=== PATIENT | female | born 1995 | race African-American/Black ===

== ENCOUNTER 2019-11-04 10:14 | Observation (INO) | payer SELFPAY ==
[~2019-11-04] VITALS: Ht 170.2 cm; Wt 60.2 kg
[2019-11-04 10:55] LABS: BASO # 0.1 (0.0-0.2); BASO % 0.4 % (0.0-2.0); GRAN # 18.6 (1.4-6.5); GRAN % 89.1 % (42.2-75.2); HEMATOCRIT 39.2 % (37.0-47.0); HEMOGLOBIN 12.7 g/dl (12.5-16.0); LYMPH # 1.3 (1.2-3.4); LYMPH % 6.2 % (20.0-51.0); MEAN CELL VOLUME 85 fl (80.0-100.0); MEAN CORPUSCULAR HEMOGLOBIN 28 pg (27.0-31.0); MEAN CORPUSCULAR HGB CONC 32 g/dl (33.0-37.0); MEAN PLATELET VOLUME 9.8 fl (7.4-10.4); MONO # 0.8 (0.1-0.6); MONO % 3.9 % (1.7-9.3); PLATELET COUNT 338 K/mm3 (130-400); RED BLOOD COUNT 4.61 M/mm3 (4.10-5.30); REDCELL DISTRIBUTION WIDTH-CV 13.9 % (11.5-14.5)
[2019-11-04 11:11] LABS: ALANINE AMINOTRANSFERASE 11 U/L (4-34); ALBUMIN 4.6 gm/dL (3.5-5.0); ALKALINE PHOSPHATASE 82 U/L (50-136); ANION GAP 11 mmol/L (7-16); AST,SGOT 18 U/L (15-37); BILIRUBIN,TOTAL 0.9 mg/dL (0.0-1.0); BLOOD UREA NITROGEN 7 mg/dL (7-17); CALCIUM 9.4 mg/dL (8.4-10.2); CARBON DIOXIDE 23 mmol/L (22-30); CHLORIDE 108 mmol/L (98-107); CREATININE, serum 0.63 (0.52-1.25); GLUCOSE 207 mg/dL (74-106); LIPASE 32 U/L (23-300); POTASSIUM 3.8 mmol/L (3.4-5.0); SODIUM 142 mmol/L (137-145); TOTAL PROTEIN 7.9 gm/dL (6.4-8.2)
[2019-11-04 11:12] LABS: C-REACTIVE PROTEIN < 0.5 mg/dL (0.0-0.9)
[2019-11-04 11:41] LABS: COLLECTION METHOD CLEAN CATCH
[2019-11-04 12:00] LABS: MUCOUS Present /lpf; PH 6 (5-8); URINE APPEARANCE Cloudy; URINE BACTERIA Moderate /hpf; URINE BILIRUBIN Negative (NEGATIVE); URINE BLOOD 3+ (NEGATIVE); URINE COLOR Yellow; URINE GLUCOSE 3+ (NEGATIVE); URINE KETONE 2+ (NEGATIVE); URINE LEUKOCYTE ESTERASE 1+ (NEGATIVE); URINE NITRATE Negative (NEGATIVE); URINE PROTEIN(semi-quant) 1+ (NEGATIVE); URINE RBC >50 /hpf; URINE UROBILINOGEN Negative (NEGATIVE)
[2019-11-04 14:18] LABS: HEMOGLOBIN 12.9 g/dl (12.5-16.0); MEAN CELL VOLUME 84 fl (80.0-100.0); MEAN CORPUSCULAR HEMOGLOBIN 28 pg (27.0-31.0); MEAN CORPUSCULAR HGB CONC 33 g/dl (33.0-37.0); MEAN PLATELET VOLUME 9.9 fl (7.4-10.4); PLATELET COUNT 322 K/mm3 (130-400); RED BLOOD COUNT 4.64 M/mm3 (4.10-5.30); REDCELL DISTRIBUTION WIDTH-CV 13.9 % (11.5-14.5)
[2019-11-04 14:37] LABS: ANISOCYTOSIS 1+; BAND 5 % (0-10); LYMPHOCYTE 4 % (20.0-51.0); NEUTROPHILS 89 % (42.0-75.2); PLATELET ESTIMATE NORMAL (NORMAL)
[2019-11-04 18:59] VITALS: BP 144/87; PULSE 60; TEMP 99.1
[2019-11-04 19:28] VITALS: BP 144/87; PULSE 60; TEMP 99.1
[2019-11-04 23:57] VITALS: BP 119/72; PULSE 57; TEMP 99.2
[2019-11-05 03:58] VITALS: BP 148/70; PULSE 60; TEMP 98.9
[2019-11-05 07:15] LABS: BASO % 0.2 % (0.0-2.0); EOS % 0.1 % (0-4.0); GRAN # 9.7 (1.4-6.5); GRAN % 74.8 % (42.2-75.2); HEMOGLOBIN 11.7 g/dl (12.5-16.0); LYMPH % 15.2 % (20.0-51.0); MEAN CELL VOLUME 83 fl (80.0-100.0); MEAN CORPUSCULAR HEMOGLOBIN 28 pg (27.0-31.0); MEAN CORPUSCULAR HGB CONC 34 g/dl (33.0-37.0); MEAN PLATELET VOLUME 10.6 fl (7.4-10.4); MONO # 1.2 (0.1-0.6); MONO % 9.2 % (1.7-9.3); PLATELET COUNT 314 K/mm3 (130-400); RED BLOOD COUNT 4.12 M/mm3 (4.10-5.30); REDCELL DISTRIBUTION WIDTH-CV 13.8 % (11.5-14.5)
[2019-11-05 07:19] LABS: HEMATOCRIT 34.3 % (37.0-47.0)
[2019-11-05 07:29] LABS: CALCIUM 9.3 mg/dL (8.4-10.2); CREATININE, serum 0.59 (0.52-1.25); MAGNESIUM 1.8 mg/dL (1.6-2.3); POTASSIUM 3.5 mmol/L (3.4-5.0)
[2019-11-05 07:33] VITALS: BP 129/70; PULSE 59; TEMP 98
[2019-11-05 12:43] VITALS: BP 140/83; PULSE 50; TEMP 98
[2019-11-05] MEDS ORDERED: BACTRIM DS 8001 TAB PO (12:43)
[2019-11-05] MEDS ORDERED: ZOFRAN 4MG T4 MG/TAB PO (13:58)
[2019-11-05 15:36] VITALS: BP 155/77; PULSE 57; TEMP 98.7
== END 2019-11-05 16:00 | disposition home or self-care (01) ==
LOC: COL.ER 10:14 → MEDICAL 14:54
PROVIDERS: Family Medicine; ADMIT Hospitalist
DX: N12 Tubulo-interstitial nephritis, not specified as acute or chronic (principal); D72.829 Elevated white blood cell count, unspecified; R73.9 Hyperglycemia, unspecified; R11.2 Nausea with vomiting, unspecified; N39.0 Urinary tract infection, site not specified; Z20.828 Contact with and (suspected) exposure to other viral communicable diseases
CPT/HCPCS: 99222-AI; G0378; J0696; J1650; J1790; J2405; J2550; J3010; J7120; Q9967

== ENCOUNTER 2020-04-07 11:37 | Emergency (ER) | payer SELFPAY ==
[~2020-04-07] VITALS: Ht 170.2 cm; Wt 51.8 kg
[~2020-04-07 11:37] MED LIST: BACTRIM DS 8001 TAB PO; ZOFRAN 4MG T4 MG/TAB PO
[2020-04-07 14:30] VITALS: BP 122/64; PULSE 66; TEMP 98.2
[2020-04-08 07:20] LABS: COLLECTION METHOD CLEAN CATCH
[2020-04-08 11:40] LABS: BASO % 0.2 % (0.0-2.0); GRAN # 11.5 (1.4-6.5); GRAN % 80.2 % (42.2-75.2); HEMATOCRIT 41.9 % (37.0-47.0); HEMOGLOBIN 14.3 g/dl (12.5-16.0); LYMPH # 1.8 (1.2-3.4); LYMPH % 12.7 % (20.0-51.0); MEAN CELL VOLUME 83 fl (80.0-100.0); MEAN CORPUSCULAR HEMOGLOBIN 28 pg (27.0-31.0); MEAN CORPUSCULAR HGB CONC 34 g/dl (33.0-37.0); MEAN PLATELET VOLUME 9.7 fl (7.4-10.4); MONO # 0.9 (0.1-0.6); MONO % 6.4 % (1.7-9.3); PLATELET COUNT 355 K/mm3 (130-400); RED BLOOD COUNT 5.08 M/mm3 (4.10-5.30); REDCELL DISTRIBUTION WIDTH-CV 13.6 % (11.5-14.5)
[2020-04-08 11:44] LABS: PH 6 (5-8); URINE APPEARANCE Hazy; URINE BILIRUBIN Negative (NEGATIVE); URINE COLOR Yellow; URINE GLUCOSE Negative (NEGATIVE); URINE KETONE 2+ (NEGATIVE); URINE PROTEIN(semi-quant) 2+ (NEGATIVE)
[2020-04-08 11:45] LABS: MUCOUS Present /lpf; SQUAMOUS EPITHELIAL 0-2 /hpf; URINE BLOOD 3+ (NEGATIVE); URINE LEUKOCYTE ESTERASE Negative (NEGATIVE); URINE NITRATE Negative (NEGATIVE); URINE RBC >50 /hpf; URINE UROBILINOGEN Negative (NEGATIVE)
[2020-04-08 11:46] LABS: URINE BACTERIA None Seen /hpf
[2020-04-08 12:30] LABS: ALANINE AMINOTRANSFERASE 16 U/L (4-34); ALBUMIN 5.4 gm/dL (3.5-5.0); ALKALINE PHOSPHATASE 87 U/L (50-136); ANION GAP 16 mmol/L (7-16); AST,SGOT 24 U/L (15-37); BILIRUBIN,TOTAL 2.4 mg/dL (0.0-1.0); BLOOD UREA NITROGEN 17 mg/dL (7-17); C-REACTIVE PROTEIN < 0.5 mg/dL (0.0-0.9); CALCIUM 9.7 mg/dL (8.4-10.2); CARBON DIOXIDE 26 mmol/L (22-30); CHLORIDE 98 mmol/L (98-107); CREATININE, serum 0.75 (0.52-1.25); GLUCOSE 107 mg/dL (74-106); LIPASE 130 U/L (23-300); POTASSIUM 3.5 mmol/L (3.4-5.0); SODIUM 140 mmol/L (137-145); TOTAL PROTEIN 9.6 gm/dL (6.4-8.2)
== END 2020-04-07 14:25 | disposition home or self-care (01) ==
LOC: COL.ER 11:37
PROVIDERS: Emergency Medicine
DX: F12.288 Cannabis dependence with other cannabis-induced disorder (principal)
CPT/HCPCS: J2550

== ENCOUNTER 2020-05-23 17:45 | Emergency (ER) | payer BC, MEDICAID ==
[~2020-05-23] VITALS: Ht 170.2 cm; Wt 56.8 kg
[2020-05-23 18:35] LABS: COLLECTION METHOD CLEAN CATCH
[2020-05-23 18:42] LABS: MUCOUS Present /lpf; PH 6 (5-8); URINE APPEARANCE Hazy; URINE BACTERIA None Seen /hpf; URINE BILIRUBIN Negative (NEGATIVE); URINE BLOOD Negative (NEGATIVE); URINE COLOR Yellow; URINE GLUCOSE Negative (NEGATIVE); URINE KETONE 1+ (NEGATIVE); URINE LEUKOCYTE ESTERASE Trace (NEGATIVE); URINE NITRATE Negative (NEGATIVE); URINE PROTEIN(semi-quant) Negative (NEGATIVE); URINE RBC 0-2 /hpf; URINE UROBILINOGEN Negative (NEGATIVE)
[2020-05-23 18:47] LABS: BASO # 0.1 (0.0-0.2); BASO % 0.5 % (0.0-2.0); EOS # 0.1 (0.0-0.7); EOS % 0.7 % (0-4.0); GRAN # 10.6 (1.4-6.5); GRAN % 69.3 % (42.2-75.2); HEMATOCRIT 42.7 % (37.0-47.0); HEMOGLOBIN 14.4 g/dl (12.5-16.0); LYMPH # 3.3 (1.2-3.4); LYMPH % 21.2 % (20.0-51.0); MEAN CELL VOLUME 84 fl (80.0-100.0); MEAN CORPUSCULAR HEMOGLOBIN 28 pg (27.0-31.0); MEAN CORPUSCULAR HGB CONC 34 g/dl (33.0-37.0); MEAN PLATELET VOLUME 9.3 fl (7.4-10.4); MONO # 1.2 (0.1-0.6); MONO % 7.6 % (1.7-9.3); PLATELET COUNT 371 K/mm3 (130-400); REDCELL DISTRIBUTION WIDTH-CV 13.6 % (11.5-14.5)
[2020-05-23 18:57] LABS: CALCIUM 10.1 mg/dL (8.4-10.2); CREATININE, serum 0.52 (0.52-1.25); POTASSIUM 3.6 mmol/L (3.4-5.0); TOTAL PROTEIN 9.5 gm/dL (6.4-8.2)
[2020-05-23 20:08] VITALS: TEMP 98.3
[2020-05-23] MEDS ORDERED: PHENERGAN 25 TA25 MG PO (20:45)
[2020-05-23 21:03] VITALS: BP 93/59; PULSE 71
== END 2020-05-23 21:15 | disposition home or self-care (01) ==
LOC: COL.ER 17:45
PROVIDERS: Nurse Practitioner
DX: O21.9 Vomiting of pregnancy, unspecified (principal); F17.210 Nicotine dependence, cigarettes, uncomplicated; Z3A.01 Less than 8 weeks gestation of pregnancy
CPT/HCPCS: J2550; J7030